=== PATIENT | female | born 1970 | race Caucasian/White ===

== ENCOUNTER 2020-11-27 17:12 | Outpatient (CLI) | payer BC, SELFPAY ==
--- NOTE | ~2020-11-27 | MM_ITS ---
EXAMINATION: MM screening yolanda BI w jose HISTORY: Screening TECHNIQUE: Craniocaudal and mediolateral oblique 3-D tomosynthesis images were obtained and synthetic 2-D images were generated. CAD analysis was submitted and interpreted. COMPARISON: No prior mammogram is available for comparison at this institution. BREAST PARENCHYMAL COMPOSITION: The breasts are heterogeneously dense, which may obscure small masses . FINDINGS: There is no evidence of suspicious mass, calcification, or architectural distortion to sugg est malignancy in either breast. There has been no suspicious interval change. IMPRESSION: 1. No mammographic evidence of malignancy. 2. Recommend routine screening mammography in one year. BI-RADS Category 1: Negative Reviewed, dictated and finalized at location A. AL MERCHANDISING ASSISTANT
== END 2020-11-27 17:13 | disposition home or self-care (01) ==
PROVIDERS: PCP Family Medicine
DX: Z12.31 Encounter for screening mammogram for malignant neoplasm of breast (principal)
CPT/HCPCS: 77063; 77067

== ENCOUNTER 2023-01-14 16:18 | Outpatient (CLI) | payer BC, SELFPAY ==
--- NOTE | ~2023-01-14 | MM_ITS ---
EXAMINATION: MM screening yolanda BI w jose HISTORY: Screening mammogram TECHNIQUE: Craniocaudal and mediolateral oblique 3-D tomosynthesis images were obtained and synthetic 2-D images were generated. CAD analysis was submitted and interpreted. COMPARISON: No prior mammogram is available for comparison at this institution. BREAST PARENCHYMAL COMPOSITION: The breasts are extremely dense, which lowers the sensitivity of mamm ography. FINDINGS: 3 mm circumscribed mass is noted in the posterior mid to lower right breast on MLO Tomosynt hesis image 30/49. Approximately 4 x 5.4 mm mass is suggested in the posterior mid right breast on screening MLO view (c raniocaudal Tomosynthesis image 26/49). The very dense fibroglandular stroma may obscure additional m asses. Bilateral breast ultrasound examination is recommended. Bilateral microcalcifications are noted. Bilateral diagnostic mammography with magnification views is recommended. No suspicious mass, architectural distortion, skin thickening or retraction of either breast is evide nt. IMPRESSION: 1. Right breast masses and bilateral microcalcifications 2. Bilateral diagnostic mammography and breast ultrasound examination is recommended BI-RADS Category 0: Incomplete: Needs additional imaging evaluation. Reviewed, dictated and finalized at location A. TRICAL ELECTRONICS TECHNICIAN IMPRESSION: 1. Right breast masses and bilateral microcalcifications 2. Bilateral diagnostic mammography and breast ultrasound examination is recomm ended BI-RADS Category 0: Incomplete: Needs additional imaging evaluation.
== END 2023-01-14 16:19 | disposition home or self-care (01) ==
PROVIDERS: PCP Family Medicine; Visit Provider Obstetrics & Gynecology
DX: Z12.31 Encounter for screening mammogram for malignant neoplasm of breast (principal); R92.8 Other abnormal and inconclusive findings on diagnostic imaging of breast
CPT/HCPCS: 77063; 77067